=== PATIENT | male | born 1995 | race Caucasian/White ===

== ENCOUNTER → 2020-11-18 | Emergency (ER) | payer BC, MEDICAID ==
[~2020-11-18] VITALS: Ht 167.6 cm; Wt 81.6 kg
[~2020-11-18] MED LIST: IBUP-1957 PO
[2020-11-18 18:25] VITALS: BP 134/81
--- NOTE | 2020-11-18 19:38 | NUR ---
Patient discharged to home in stable condition. Written and verbal after care instructions given. Patient verbalizes understanding of instruction.
== END | disposition home or self-care (01) ==
LOC: ER 18:15
DX: M25.562 Pain in left knee (principal)
CPT/HCPCS: 73564-TC

== ENCOUNTER → 2021-04-06 | Emergency (ER) | payer BC ==
--- NOTE | 2021-04-06 16:15 | NUR ---
Called NO answer
--- NOTE | 2021-04-06 16:33 | NUR ---
Called NO answer
== END | disposition left against medical advice (07) ==
LOC: ER 15:39
DX: Z53.21 Procedure and treatment not carried out due to patient leaving prior to being seen by health care provider (principal)